=== PATIENT | female | born 1990 | race Caucasian/White ===

== ENCOUNTER 2019-03-16 10:21 | Inpatient (IN) | payer OTHER ==
[2019-03-16] MEDS ORDERED: MISOPROSTOL 200 MCG TAB PR (10:30)
[2019-03-16] MEDS ORDERED: CARBOPROST 250 MCG INJ IM (10:30)
[2019-03-16] MEDS ORDERED: OXYTOCIN 30 UNITS/LR 500 ML IV ×2 (10:30→12:30)
[2019-03-16] MEDS ORDERED: BUTORPHANOL 2 MG INJ IV (10:30)
[2019-03-16] MEDS ORDERED: METHYLERGONOVINE 0.2 MG INJ IM (10:30)
[2019-03-16] MEDS ORDERED: LIDOCAINE 1% (MPF) 30 ML INJ INJ (10:30)
[2019-03-16] MEDS ORDERED: IBUPROFEN 600 MG TAB PO (10:30)
[2019-03-16] MEDS: LACTATED RINGER'S 1,000 ML IV (11:07)
[2019-03-16 11:18] LABS: ADD MAN DIFF? NO
[2019-03-16 11:20] LABS: WHITE BLOOD COUNT 8.4 10^3/ul (4.8-10.8)
[2019-03-16 11:20] LABS: BASOPHILS % 0.2 % (0.0-2.0); EOSINOPHILS # 0.1 10^3/ul (0.0-0.5); EOSINOPHILS % 1.1 % (0.0-7.0); HEMOGLOBIN 12.6 g/dl (12.0-16.0); LYMPHOCYTES # 1.7 10^3/ul (0.8-2.9); MEAN CORPUSCULAR HEMOGLOBIN 30.7 pg (29.0-33.0); MEAN CORPUSCULAR HGB CONC 34.1 g/dl (32.0-37.0); MEAN PLATELET VOLUME 9.5 fl (7.4-10.4); MONOCYTE # 0.8 10^3/ul (0.3-0.9); MONOCYTES % 9.2 % (0.0-11.0); NEUTROPHIL # 5.8 10^3/ul (1.6-7.5); PLATELET COUNT 216 10^3/UL (140-415); RED BLOOD COUNT 4.11 10^6/ul (4.20-5.40); RED CELL DISTRIBUTION WIDTH 13.2 % (11.5-14.5)
[2019-03-16 11:42] LABS: GLUCOSE 61 mg/dl (70-220)
[2019-03-16 11:42] LABS: PROTIME 12.3 Sec (11.9-14.9)
[2019-03-16 11:43] LABS: PARTIAL THROMBOPLASTIN TIME 25.6 Sec (23.0-35.0)
[2019-03-16] MEDS ORDERED: MISOPROSTOL 50 MCG CAPSULE PO (12:00)
[2019-03-16 12:12] LABS: HEPATITIS B SURFACE ANTIGEN NEGATIVE (NEGATIVE)
[2019-03-16] MEDS: OXYTOCIN 30 UNITS/LR 500 ML IV (12:55)
[2019-03-16] MEDS: DEXTROSE 5%-LR 1,000 ML IV ×2 (12:56→21:05)
[2019-03-16 16:52] LABS: RAPID PLASMA REAGIN NONREACTIVE (NR)
[2019-03-16] MEDS: MINERAL OIL LIGHT 10 ML VIAL TOP (23:23)
[2019-03-17] MEDS ORDERED: FENTAnyl 2MCG/ML-ROPIV 0.2% 100 ML (00:55)
[2019-03-17] MEDS ORDERED: FENTAnyl 2MCG/ML-ROPIV 0.2% 100 ML BAG EPI (01:00)
[2019-03-17] MEDS ORDERED: DIPHENHYDRAMINE 50 MG INJ IV (01:00)
[2019-03-17] MEDS ORDERED: NALOXONE (0.4 MG/ML) INJ IV (01:00)
[2019-03-17] MEDS ORDERED: TRIMETHOBENZAMIDE 100 MG/ML VIAL IM (01:00)
[2019-03-17] MEDS ORDERED: ONDANSETRON 4 MG INJ IV ×2 (01:00→03:30)
[2019-03-17] MEDS: OXYTOCIN 30 UNITS/LR 500 ML IV ×3 (03:26→08:20)
[2019-03-17] MEDS ORDERED: OXYTOCIN 30 UNITS/LR 500 ML IV (03:30)
[2019-03-17] MEDS ORDERED: OXYCODONE/ASPIRIN (4.88/325) TAB PO ×2 (03:30)
[2019-03-17] MEDS ORDERED: METHYLERGONOVINE 0.2 MG INJ IM (03:30)
[2019-03-17] MEDS ORDERED: CARBOPROST 250 MCG INJ IM (03:30)
[2019-03-17] MEDS ORDERED: MISOPROSTOL 200 MCG TAB PR (03:30)
[2019-03-17] MEDS ORDERED: NACL 0.9% 3 ML SYG IV (03:30)
[2019-03-17] MEDS: LANOLIN HPA 1 PKT TOP (05:52)
[2019-03-17] MEDS: IBUPROFEN 600 MG TAB PO ×3 (05:52→17:44)
[2019-03-17] MEDS: WITCH HAZEL/GLYCERIN PAD PR (05:53)
[2019-03-17] MEDS: SENNA/DOCUSATE NA (8.6MG/50MG) TAB PO ×2 (08:19→20:36)
[2019-03-18] MEDS: IBUPROFEN 600 MG TAB PO ×5 (00:10→23:57)
[2019-03-18 04:57] LABS: ADD MAN DIFF? NO
[2019-03-18 05:04] LABS: BASOPHILS % 0.3 % (0.0-2.0); EOSINOPHILS # 0.1 10^3/ul (0.0-0.5); EOSINOPHILS % 0.5 % (0.0-7.0); HEMATOCRIT 32.8 % (37.0-47.0); HEMOGLOBIN 11.2 g/dl (12.0-16.0); LYMPHOCYTES # 3.8 10^3/ul (0.8-2.9); LYMPHOCYTES % 25.1 % (15.0-51.0); MEAN CORPUSCULAR HEMOGLOBIN 31.1 pg (29.0-33.0); MEAN CORPUSCULAR HGB CONC 34.1 g/dl (32.0-37.0); MEAN CORPUSCULAR VOLUME 91.1 fl (82.0-101.0); MEAN PLATELET VOLUME 9.4 fl (7.4-10.4); MONOCYTES % 6.6 % (0.0-11.0); PLATELET COUNT 199 10^3/UL (140-415); RED CELL DISTRIBUTION WIDTH 13.3 % (11.5-14.5)
[2019-03-18] MEDS: SENNA/DOCUSATE NA (8.6MG/50MG) TAB PO ×2 (09:16→21:26)
[2019-03-18] MEDS: LANOLIN HPA 1 PKT TOP (16:06)
[2019-03-18] MEDS: ACETAMINOPHEN 325 MG TAB PO (16:57)
[2019-03-18] MEDS: WITCH HAZEL/GLYCERIN PAD PR (23:57)
[2019-03-19] MEDS: IBUPROFEN 600 MG TAB PO ×3 (05:44→17:20)
[2019-03-19] MEDS: SENNA/DOCUSATE NA (8.6MG/50MG) TAB PO (08:49)
== END 2019-03-19 19:15 | disposition home or self-care (01) | DRG 807 ==
LOC: L-D 10:21 → MS1 03-17 05:27 → L-D 16:33
PROVIDERS: Obstetrics & Gynecology
PROC: 10907ZC Drainage of Amniotic Fluid, Therapeutic from Products of Conception, Via Natural or Artificial Opening (ICD-10-PCS; 2019-03-16 10:30)
DX: O24.420 Gestational diabetes mellitus in childbirth, diet controlled (principal); Z37.0 Single live birth; Z3A.39 39 weeks gestation of pregnancy; O70.0 First degree perineal laceration during delivery
CPT/HCPCS: 62322; 76815; 82947; 82962; 85025; 85610; 85730; 86592; 86850; 86900; 86901; 87340